=== PATIENT | female | born 1975 | race Caucasian/White ===

== ENCOUNTER → 2020-05-26 09:49 | Outpatient (CLI) | payer OTHER, SELFPAY ==
--- NOTE | 2020-05-26 09:54 | MM_ITS ---
PROCEDURE: MM DIG SCREENING MAMM BI W/CAD Digital Breast Tomosynthesis Included CLINICAL INDICATION: SCREENING There is a history of breast cancer patient's maternal great grandmother. COMPARISON: This is a baseline exam, patient without complaints TECHNIQUE: Standard CC and MLO images and 3D Tomosynthesis was obtained. R2 CAD reviewed. FINDINGS: Fibroglandular densities are seen throughout both breast primarily upper outer quadrants. There is a benign-appearing nodular density upper-outer quadrant right breast and a similar benign-appearing nodular density upper-outer quadrant left breast. These are likely cyst or possibly a low-lying nodes however since this is a baseline study recommend the patient return for targeted ultrasound of each breast for better evaluation. There are no suspicious microcalcifications in either breast. IMPRESSION: Fibrofatty parenchyma with asymmetric densities in each breast BI-RAD Category: 0 Need Additional Imaging Evaluation FOLLOW-UP: IMM Immediate Follow-up Recommended (A letter has been sent to the patient regarding results of the study.) Dictated by: Dr. Marco Antonio Valenzuela MD 06/01/2020 17:59 Dr. Marco Antonio Valenzuela MD in [place] 06/01/2020 17:59
== END ==
PROVIDERS: PCP Nurse Practitioner; Visit Provider Nurse Practitioner
DX: Z12.31 Encounter for screening mammogram for malignant neoplasm of breast (principal)
CPT/HCPCS: 77063; 77067

== ENCOUNTER → 2020-06-08 14:02 | Outpatient (CLI) | payer OTHER, SELFPAY ==
--- NOTE | 2020-06-08 14:26 | US_ITS ---
PROCEDURE: US BREAST LT COMPLETE CLINICAL INDICATION: DISORDERS OF BREAST COMPARISON: MG MM DIG SCREENING MAMM BI W/CAD from 05/26/2020 US US BREAST RT COMPLETE from 06/08/2020 FINDINGS: Left breast: No cystic or solid nodules identified. Right breast: The 10 o'clock region of the right breast there is a 1 x 0.4 cm isoechoic nodule with central focus of increased echogenicity and may be due to a lymph node and may correspond to the mammographic abnormality.. This may also be due to an island of fibroglandular tissue. In review of the mammogram. The nodular densities in the upper outer aspect of both breasts are probably related to lymph nodes. IMPRESSION: No suspicious sonographic abnormality. Mammographic abnormalities probably related to a benign appearing lymph nodes. Suggest 6 month mammographic follow-up. BI-RADS category 3, probably benign. Recommend six-month mammographic follow-up Dictated by: Husam Neal MD 06/12/2020 10:25 Husam Neal MD in [place] 06/12/2020 10:25
== END ==
PROVIDERS: PCP Nurse Practitioner; Visit Provider Nurse Practitioner
DX: N64.4 Mastodynia (principal); R92.8 Other abnormal and inconclusive findings on diagnostic imaging of breast; Z80.3 Family history of malignant neoplasm of breast
CPT/HCPCS: 76641

== ENCOUNTER 2020-09-17 16:11 | Emergency (ER) | payer BC, SELFPAY ==
[2020-09-17 16:27] VITALS: BP 147/82; PULSE 101; RESP 20; TEMP 37.7; O2SAT 95; BMI 37.5
[2020-09-17 16:56] VITALS: BP 147/82; PULSE 108; RESP 20; TEMP 37.7; O2SAT 96; BMI 37.7
--- NOTE | 2020-09-17 17:07 | HMH.EDUTC ---
[facility] Disposition Condition on Discharge: Good <Joselo Hinson - Last Filed: 09/17/20 19:39> Condition on Discharge: Good <Gerry Montero - Last Filed: 09/17/20 22:36> Clinical Impression: Atypical pneumonia, Pneumonia due to COVID-19 virus Disposition: Home, Self-Care Instructions: DI for COVID-19 (Suspected or Confirmed ) Prescriptions: Doxycycline Hyclate [Doxycycline 100mg Capsule] 100 mg PO BID #20 cap Transmission Status: Received by [id number] Referrals: Cely Cancino APRN [Primary Care Provider] - Medical Decision Making - Medical Records Medical records reviewed: Yes: I reviewed the patient's medical records. - Gabriele Inquiry Pt receiving controlled substance: No - Lab Data Result diagrams: 09/17/20 18:18 09/17/20 18:18 - Radiology Data #1 Image(s): Chest Image Reviewed: Yes I reviewed the patient's radiology results, Yes I reviewed the patient's radiology image, Yes I have reviewed radiologist's interpretation - Reevaluation(s) Time: 19:41 <Joselo Hinson - Last Filed: 09/17/20 19:39> - Medical Records Medical records reviewed: No: I reviewed the patient's medical records. - Gabriele Inquiry Pt receiving controlled substance: No - Lab Data Result diagrams: 09/17/20 18:18 09/17/20 18:18 <Gerry Montero - Last Filed: 09/17/20 22:36> Vital Signs: 09/17/20 16:27 09/17/20 16:56 09/17/20 18:44 Temperature 99.8 F H 99.8 F H 99.4 F Temperature Source Oral Oral Oral Pulse Rate Pulse Rate [Right Radial] 101 H 108 H 74 Respiratory Rate 20 20 18 Blood Pressure Blood Pressure [Right Arm] 147/82 H 147/82 H 124/89 Blood Pressure Mean [Right Arm] 103 103 100 Blood Pressure Source [Right Arm] Automatic Cuff Blood Pressure Position [Right Arm] Sitting 02 Sat by Pulse Oximetry 95 96 95 Oxygen Delivery Method Room Air 09/17/20 20:01 Temperature 98.7 F Temperature Source Oral Pulse Rate 83 Pulse Rate [Right Radial] Respiratory Rate 18 Blood Pressure 130/72 Blood Pressure [Right Arm] Blood Pressure Mean [Right Arm] Blood Pressure Source [Right Arm] Blood Pressure Position [Right Arm] 02 Sat by Pulse Oximetry Oxygen Delivery Method - Lab Data Lab Results 09/17/20 18:18: WBC 2.9 L, RBC 4.92, Hgb 14.0, Hct 39.8, MCV 80.9 L, MCH 28.4, MCHC 35.1, RDW 13.8, Plt Count 192, MPV 8.5, Neut % (Auto) 63.6, Lymph % (Auto) 29.1, [place] % (Auto) 6.1, Eos % (Auto) 0.2, Baso % (Auto) 1.0, Neut # (Auto) 1.9, Lymph # (Auto) 0.9, [place] # (Auto) 0.2, Eos # (Auto) 0.0, Baso # (Auto) 0.0 09/17/20 18:18: Sodium 137, Potassium 3.9, Chloride 100, Carbon Dioxide 22, Anion Gap 18.9 H, BUN 17, Creatinine 0.90, Estimated Creat Clear 115, Estimated GFR 67, Est GFR ( Amer) 82, Glucose 101 H, Calcium 8.7 Orders (Tests/Meds): ED MEDICATIONS Discontinued Medications Generic Name Dose Route Start Last Admin Trade Name Freq PRN Reason Stop Dose Admin Dexamethasone Sodium Phosphate 10 mg 09/17/20 19:42 09/17/20 19:55 Dexamethasone 4mg/Ml 5ml Mdv IV 09/17/20 19:43 10 mg ONCE ONE Administration Sodium Chloride 1,000 mls @ 999 mls/hr 09/17/20 18:00 09/17/20 18:36 Sod Chlor 0.9% 1000ml Bag IV 09/17/20 19:00 999 mls/hr .Q1H1M TAMELA Administration Doxycycline Hyclate 100 mg/ 250 mls @ 166.667 mls/hr 09/17/20 19:05 09/17/20 19:19 Sodium Chloride IV 09/17/20 19:06 166.667 mls/hr ONCE ONE Administration Protocol Ondansetron HCl 4 mg 09/17/20 18:10 09/17/20 18:36 Ondansetron 4mg/2ml Vial IV 09/17/20 18:11 4 mg ONCE ONE Administration - Radiology Data #1 IMPRESSION: Patchy bilateral pulmonary nodular infiltrates. (Joselo Hinson) - Reevaluation(s) Reevaluation #1: On reevaluation, the patient is feeling better. There is no evidence of hypoxia or respiratory distress. We did ambulate the patient without any desaturations. Patient be discharged with short course antibiotics. She is coronavirus positive.
--- NOTE | 2020-09-17 17:11 | XR_ITS ---
PROCEDURE INFORMATION: Exam: XR Chest Exam date and time: 09/17/20 05:11 PM Age: 44 years old Clinical indication: Cough; Additional info: Cough, short of breath TECHNIQUE: Imaging protocol: XR of the chest. Views: 2 views. COMPARISON: No relevant prior studies available. FINDINGS: Lungs: Patchy bilateral pulmonary nodular infiltrates. Pleural spaces: Unremarkable. No pleural effusion. No pneumothorax. Heart/Mediastinum: Unremarkable. No cardiomegaly. Bones/joints: Unremarkable. IMPRESSION: Patchy bilateral pulmonary nodular infiltrates.
[2020-09-17 18:44] VITALS: BP 124/89; PULSE 74; RESP 18; TEMP 37.4; O2SAT 95; BMI 37.7
[2020-09-17 19:01] LABS: Chloride 100 mmol/L (98-107)
[2020-09-17 19:02] LABS: Eosinophils % 0.2 % (0.1-12.0); Hematocrit 39.8 % (37.0-47.0); Lymphocytes # 0.9 K/mm3 (0.7-4.5); Lymphocytes % 29.1 % (10-50); Mean Corpuscular HGB Conc 35.1 g/dL (31.8-35.4); Mean Corpuscular Hemoglobin 28.4 pg (27.0-31.2); Mean Corpuscular Volume 80.9 fl (81-99); Mean Platelet Volume 8.5 fl (7.4-10.4); Monocytes # 0.2 K/mm3 (0.1-1.0); Monocytes % 6.1 % (1.7-9.3); Neutrophils # 1.9 K/mm3 (1.8-7.8); Neutrophils % 63.6 % (37.0-80.0); Platelet Count 192 K/mm3 (142-424); Potassium 3.9 mmoL/L (3.5-5.1); Red Blood Count 4.92 M/mm3 (4.20-5.40); Red Cell Distribution Width 13.8 % (11.5-17.5); Sodium 137 mmol/L (136-145); White Blood Count 2.9 K/mm3 (4.8-10.8)
[2020-09-17 19:05] LABS: Anion Gap 18.9 mEq/L (5-15); Blood Urea Nitrogen 17 mg/dl (7-17); Calcium 8.7 mg/dl (8.4-10.2); Carbon Dioxide 22 mmol/L (22.0-30.0); Creatinine Clearance Estimated 115 mL/min (50-200); Estimated Glomerular Filt Rate 67 ml/min (>60); GFR (African American) 82 ML/MIN (>60); Glucose 101 mg/dl (74-100)
[2020-09-17 20:01] VITALS: BP 130/72; PULSE 83; RESP 18; TEMP 37.1; O2SAT 99
== END 2020-09-17 20:11 | disposition home or self-care (01) ==
LOC: UTC 16:42 → ER 18:38
PROVIDERS: Nurse Practitioner Family; Emergency Provider Emergency Medicine; PCP Nurse Practitioner
DX: J12.82 Pneumonia due to coronavirus disease 2019 (principal)
CPT/HCPCS: 71046; 80048; 85025; 96365; 96366; 96375; 99283; J2405; U0003

== ENCOUNTER 2020-09-21 18:16 | Emergency (ER) | payer BC, SELFPAY ==
[2020-09-21 18:18] VITALS: BP 142/91; PULSE 101; RESP 18; TEMP 36.9; O2SAT 97; BMI 34.9
[2020-09-21 18:27] VITALS: BP 133/91; PULSE 111; O2SAT 95
[2020-09-21 18:33] VITALS: BP 142/91; PULSE 112; O2SAT 96
--- NOTE | 2020-09-21 18:48 | XR_ITS ---
PROCEDURE INFORMATION: Exam: XR Chest Exam date and time: 09/21/2020 6:48 PM Age: 44 years old Clinical indication: Patient HX: Cough, patient is covid positive. TECHNIQUE: Imaging protocol: XR of the chest. Views: 1 view. COMPARISON: CR XR CHEST 2V 09/17/2020 5:24 PM FINDINGS: Lungs: Subtle patchy opacity over the right base. Probable calcified nodule again seen on the left. Pleural spaces: Unremarkable. No pleural effusion. No pneumothorax. Heart/Mediastinum: Unremarkable. No cardiomegaly. Bones/joints: Unremarkable. IMPRESSION: Subtle patchy opacity over the right base is worrisome for infection.
[2020-09-21 19:00] VITALS: BP 144/93; PULSE 106; O2SAT 95
--- NOTE | 2020-09-21 19:04 | HMH.EDGENADL ---
ED Disposition Clinical Impression: Pneumonia due to COVID-19 virus, Gastroenteritis Disposition: Home, Self-Care Condition on Discharge: Good Instructions: DI for COVID-19 (Suspected or Confirmed ) Prescriptions: Dicyclomine HCl [Bentyl 10mg capsule] 10 mg PO TID #21 cap Transmission Status: Pending to [id number] Referrals: Cely Cancino APRN [Primary Care Provider] - - Critical Care Critical Care Time: No Attestation: On 09/21/20, the high probability of a clinically significant, sudden or life threatening deterioration of the following system(s) required my full and direct attention, intervention and personal management. The time I documented below is in addition to time spent performing reported procedures but includes the following listed in this critical care notation. Medical Decision Making - Medical Records Medical records reviewed: Yes: I reviewed the patient's medical records. - Gabriele Inquiry Pt receiving controlled substance: No Vital Signs: 09/21/20 18:18 09/21/20 18:27 09/21/20 18:33 Temperature 98.4 F Temperature Source Oral Pulse Rate 111 H 112 H Pulse Rate [Right] 101 H Respiratory Rate 18 Blood Pressure 133/91 H 142/91 H Blood Pressure [Right Arm] 142/91 H Blood Pressure Mean 107 101 Blood Pressure Mean [Right Arm] 108 02 Sat by Pulse Oximetry 97 95 96 Oxygen Delivery Method Room Air 09/21/20 19:00 Temperature Temperature Source Pulse Rate 106 H Pulse Rate [Right] Respiratory Rate Blood Pressure 144/93 H Blood Pressure [Right Arm] Blood Pressure Mean 103 Blood Pressure Mean [Right Arm] 02 Sat by Pulse Oximetry 95 Oxygen Delivery Method - Lab Data Lab Results 09/21/20 18:35: WBC 4.6 L, RBC 4.90, Hgb 13.2, Hct 39.9, MCV 81.4, MCH 26.9 L, MCHC 33.1, RDW 12.9, Plt Count 358, MPV 7.9, Neut % (Auto) 65.9, Lymph % (Auto) 23.7, [place] % (Auto) 7.9, Eos % (Auto) 2.1, Baso % (Auto) 0.4, Neut # (Auto) 3.0, Lymph # (Auto) 1.1, [place] # (Auto) 0.4, Eos # (Auto) 0.1, Baso # (Auto) 0.0 09/21/20 18:35: Sodium 140, Potassium 3.5, Chloride 104, Carbon Dioxide 23, Anion Gap 16.5 H, BUN 16, Creatinine 0.80, Estimated Creat Clear 120, Estimated GFR 77, Est GFR ( Amer) 93, Glucose 98, Calcium 9.0, Total Bilirubin 1.0, AST 69 H, ALT 96 H, Alkaline Phosphatase 96, Total Protein 8.0, Albumin 4.4, Globulin 3.6 H, Albumin/Globulin Ratio 1.2 Result diagrams: 09/21/20 18:35 09/21/20 18:35 Orders (Tests/Meds): ED MEDICATIONS Generic Name Dose Route Start Last Admin Trade Name Freq PRN Reason Stop Dose Admin Sodium Chloride 1,000 mls @ 999 mls/hr 09/21/20 19:00 09/21/20 18:56 Sod Chlor 0.9% 1000ml Bag IV 09/21/20 20:00 999 mls/hr .Q1H1M TAMELA Administration Discontinued Medications Generic Name Dose Route Start Last Admin Trade Name Freq PRN Reason Stop Dose Admin Ketorolac Tromethamine 30 mg 09/21/20 18:48 09/21/20 19:02 Ketorolac 30mg/Ml Vial IM 09/21/20 18:49 Not Given ONCE ONE Ketorolac Tromethamine 30 mg 09/21/20 18:58 09/21/20 19:01 Ketorolac 30mg/Ml Vial IV 09/21/20 18:59 30 mg ONCE ONE Administration Ondansetron HCl 4 mg 09/21/20 18:48 09/21/20 18:56 Ondansetron 4mg/2ml Vial IV 09/21/20 18:49 4 mg ONCE ONE Administration - Radiology Data #1 Image(s): Chest Image Reviewed: Yes I reviewed the patient's radiology results, Yes I have reviewed radiologist's interpretation IMPRESSION: Subtle patchy opacity over the right base is worrisome for infection. - Reevaluation(s) Time: 19:51 Reevaluation #1: On reevaluation, the patient is feeling better. Again there is no hypoxia or respiratory distress. Patient appears hemodynamically stable. Abdomen is nonacute. Nontoxic-appearing. We will try some antidiarrheal medications to help with the patient's symptoms. She will continue her outpatient prescribed antibiotics. Patient does need repeat examination. Patient was given
[2020-09-21 19:05] LABS: Chloride 104 mmol/L (98-107); Potassium 3.5 mmoL/L (3.5-5.1); Sodium 140 mmol/L (136-145)
[2020-09-21 19:07] LABS: Alanine Aminotransferase 96 U/L (12-78); Aspartate Amino Transferase 69 U/L (14-36); Blood Urea Nitrogen 16 mg/dl (7-17); Creatinine Clearance Estimated 120 mL/min (50-200); Estimated Glomerular Filt Rate 77 ml/min (>60); GFR (African American) 93 ML/MIN (>60)
[2020-09-21 19:08] LABS: Albumin Level 4.4 g/dl (3.5-5.0); Albumin/Globulin Ratio 1.2 (1.1-1.8); Alkaline Phosphatase 96 U/L (38-126); Anion Gap 16.5 mEq/L (5-15); Carbon Dioxide 23 mmol/L (22.0-30.0); Globulin 3.6 g/dL (1.3-3.2); Glucose 98 mg/dl (74-100)
[2020-09-21 19:20] LABS: Basophils % 0.4 % (0.1-2.0); Eosinophils # 0.1 K/mm3 (0.0-0.4); Eosinophils % 2.1 % (0.1-12.0); Hematocrit 39.9 % (37.0-47.0); Hemoglobin 13.2 g/dL (12.2-16.2); Lymphocytes # 1.1 K/mm3 (0.7-4.5); Lymphocytes % 23.7 % (10-50); Mean Corpuscular HGB Conc 33.1 g/dL (31.8-35.4); Mean Corpuscular Hemoglobin 26.9 pg (27.0-31.2); Mean Corpuscular Volume 81.4 fl (81-99); Mean Platelet Volume 7.9 fl (7.4-10.4); Monocytes # 0.4 K/mm3 (0.1-1.0); Monocytes % 7.9 % (1.7-9.3); Neutrophils % 65.9 % (37.0-80.0); Platelet Count 358 K/mm3 (142-424); Red Cell Distribution Width 12.9 % (11.5-17.5); White Blood Count 4.6 K/mm3 (4.8-10.8)
[2020-09-21 20:37] VITALS: BP 153/80; PULSE 90; RESP 18; TEMP 36.9; O2SAT 95
== END 2020-09-21 20:41 | disposition home or self-care (01) ==
PROVIDERS: Emergency Provider Emergency Medicine; PCP Nurse Practitioner
DX: J12.82 Pneumonia due to coronavirus disease 2019 (principal); K52.9 Noninfective gastroenteritis and colitis, unspecified
CPT/HCPCS: 71045; 80053; 85025; 96365; 96375; 99282; J2405

== ENCOUNTER → 2021-01-11 13:32 | Outpatient (CLI) | payer BC, SELFPAY ==
--- NOTE | 2021-01-11 13:37 | MM_ITS ---
PROCEDURE INFORMATION: Exam: MG Bilateral Diagnostic Breast Tomosynthesis Exam date and time: 01/11/2021 1:37 PM Age: 45 years old Clinical indication: Short-term radiographic follow-up for bilateral upper outer quadrant masses seen on mammogram dated 05/26/2020. TECHNIQUE: Imaging protocol: Bilateral Diagnostic tomosynthesis and 2D mammography including computer-aided detection (CAD) when performed. Unilateral or bilateral exam. COMPARISON: 1. MG MM DIG SCREENING MAMM BI W/CAD 05/26/2020 9:56 AM 2. US BREAST LT COMPLETE 06/08/2020 2:43 PM FINDINGS: MAMMOGRAPHY: The breast tissue is heterogeneously dense, which may obscure small masses. There is no stellate mass, architectural distortion or suspicious microcalcifications in either breast to suggest malignancy. Bilateral fat containing subcentimeter upper outer quadrant intramammary lymph nodes are present and correspond to the previously noted masses seen on mammogram dated 05/26/2020. No skin thickening or axillary adenopathy. IMPRESSION: No mammographic evidence of malignancy. Bilateral benign intramammary lymph nodes.Annual bilateral mammographic screening is recommended unless otherwise clinically indicated. ASSESSMENT: BI-RADS Category 1: Negative
== END ==
PROVIDERS: PCP Nurse Practitioner; Visit Provider Nurse Practitioner
DX: R92.8 Other abnormal and inconclusive findings on diagnostic imaging of breast (principal)
CPT/HCPCS: 77062; 77066; G0279

== ENCOUNTER 2022-12-24 23:38 | Emergency (ER) | payer BC, SELFPAY ==
[2022-12-24 23:39] VITALS: BP 168/98; PULSE 108; RESP 16; TEMP 37; O2SAT 97; BMI 37.5
--- NOTE | 2022-12-24 23:45 | HMH.EDGENADL ---
Discharge Plan Disposition Patient Disposition: Home, Self-Care Prescriptions Prescriptions: New nitrofurantoin macrocrystal 100 mg capsule 100 mg PO BID 5 Days Qty: 10 0RF Rx Instructions: must administer with a meal/food phenazopyridine [Pyridium] 200 mg tablet 200 mg PO Q8H PRN (Reason: pain) Qty: 20 0RF No Action dicyclomine 10 MG capsule 10 mg PO TID Qty: 21 0RF doxycycline hyclate 100 MG capsule 100 mg PO BID Qty: 20 0RF Referrals Follow up/Referrals: Cely Cancino APRN [Primary Care Provider] - See instructions Activity Restrictions/Add. Instructions Additional Instructions/Restrictions: Please follow-up with your primary care provider. Please return to the emergency department if you develop any new or worsening symptoms or become concerned for your health. Please take antibiotics as prescribed. Clinical Impressions Clinical Impression: UTI (urinary tract infection) Qualifiers: Urinary tract infection type: acute cystitis Hematuria presence: with hematuria Qualified Code(s): N30.01 - Acute cystitis with hematuria Instructions Patient Instructions: DI for Urinary Tract Infection (UTI), DI for Urinary Tract Infection in Children Discharge ED Provider: Catalino Oswald General Adult HPI General Chief complaint: Urogenital-Female Stated complaint: blood in urine Time Seen by Provider: 12/24/22 23:43 History of Present Illness HPI narrative: 47-year-old female presents with hematuria, burning with urination, suprapubic pain. She denies any flank pain. She reports that when she was growing up she had frequent UTIs, but has not had one for a long time. She reports that she developed gross hematuria this evening, and has been worsening. She denies any recent fever or illness. Reports no history of kidney stones. Reports that her UTIs as a child presented with hematuria and pain. She reports no other concerning signs of bleeding. Specifically denies any menstrual bleeding, vaginal trauma, rectal bleeding. No history of coagulopathy. Related Data Previous Rx's Medication Instructions Recorded doxycycline hyclate 100 mg capsule 100 mg PO BID #20 caps 09/17/20 dicyclomine 10 mg capsule 10 mg PO TID #21 caps 09/21/20 nitrofurantoin macrocrystal 100 mg 100 mg PO BID 5 days #10 caps 12/25/22 capsule phenazopyridine 200 mg tablet 200 mg PO Q8H PRN pain 6 doses #20 12/25/22 (Pyridium) tabs Allergies Allergy/AdvReac Type Severity Reaction Status Date / Time cephalexin Allergy Verified 09/17/20 17:02 sulfamethoxazole Allergy Verified 09/17/20 17:02 [From Bactrim] trimethoprim [From Bactrim] Allergy Verified 09/17/20 17:02 [facility] Disclaimer: The information contained in this section may have been updated after the patient was seen, as this information can be updated by other users. Social History Smoking Status: Never smoker alcohol intake: never current occupational status: other Travel in the last 8 weeks: None ROS Obtained: Yes All systems reviewed & no additional complaints except as documented Physical Exam General General appearance: alert and in no apparent distress Head Head exam: atraumatic and normocephalic Eye Eye exam: Present normal appearance, PERRL and EOMI ENT ENT exam: Present normal oropharynx and normal external ear exam Neck Neck exam: Present normal inspection and full ROM Chest Chest inspection: Present normal inspection and symmetric chest wall rise; Absent tenderness Respiratory Respiratory exam: Present normal lung sounds bilaterally; Absent respiratory distress Cardiovascular Cardiovascular exam: Present regular rate and normal rhythm Abdominal Exam Abdominal exam: Present soft; Absent distention, tenderness or guarding Extremities Exam Extremities exam: Present normal inspection; Absent edema or joint swelling Back Exam Back exam: Present normal inspection; Absent tenderness Neurological Exam Neurologic
--- NOTE | 2022-12-24 23:49 | PC.NURSE ---
in room talking with patient at this time.
[2022-12-25 00:01] LABS: Microscopic, Urine URINE MICROSCOPIC (MICROSCOPIC)
[2022-12-25 00:07] LABS: Appearance,Urine CLEAR (Clear); Blood, Urine 3+ (Negative); Color,Urine YELLOW (Yellow); Glucose,Urine (UA) Negative (Negative); Ketones,Urine Negative (Negative); Leukocyte Esterase,Urine 1+ (Negative); Nitrate,Urine POSITIVE (Negative); Protein,Urine 3+ (Negative); Specific Gravity, Urine >= 1.030 (1.005-1.030)
[2022-12-25 00:12] LABS: Bilirubin,Urine 1+ (Negative)
[2022-12-25 00:17] LABS: Bacteria,Urine Trace /lpf; RBC,Urine TNTC #/hpf (0-3); Squamous Epithelial Cell,Urine Occasional #/hpf (0-5)
--- NOTE | 2022-12-25 00:24 | PC.NURSE ---
in room talking with patiet at this time.
[2022-12-25 00:38] VITALS: BP 145/76; PULSE 76; RESP 20; TEMP 36.9
== END 2022-12-25 00:40 | disposition home or self-care (01) ==
PROVIDERS: Emergency Provider Emergency Medicine; PCP Nurse Practitioner
DX: N30.01 Acute cystitis with hematuria (principal); R10.30 Lower abdominal pain, unspecified
CPT/HCPCS: 81001; 87086; 96372; 99283

== ENCOUNTER 2023-12-18 09:00 | Outpatient (RCR) | payer BC, SELFPAY | END 2024-01-16 13:49 | disposition home or self-care (01) | LOC: PT 09:00 | PROVIDERS: Visit Provider Nurse Practitioner | DX: M25.561 Pain in right knee (principal) | CPT/HCPCS: 97014; 97035; 97110; 97163; G0283 ==

== ENCOUNTER 2024-02-08 08:38 | Outpatient (CLI) | payer BC, SELFPAY ==
--- NOTE | 2024-02-08 08:46 | MR_ITS ---
FINAL REPORT CLINICAL HISTORY: PAIN RT KNEE. POPPING IN KNEE. PAIN ABOVE PATELLA. KNEE INSTABILITY FINDINGS: Multiplanar MR imaging of the right knee was performed without contrast. The medial and lateral menisci are intact without evidence of meniscal tear. The anterior and posterior cruciate ligaments are intact. The medial collateral ligament and lateral ligamentous complex are intact. The patellar and quadriceps tendons are intact. There is no evidence of fracture. There is mild lateral patellar subluxation. No focal abnormality is identified of the articular cartilage. A small joint effusion is seen. The musculature is intact. There is a 24 mm lobular cystic mass at the posterior knee consistent with ganglion cyst. IMPRESSION: Mild lateral patellar subluxation. 24 mm ganglion cyst at the posterior knee. Reviewed, Interpreted and Dictated by Nader Aguilar III, MD Transcribed by Lore Conroy Authenticated and [facility]
== END 2024-02-08 23:59 | disposition home or self-care (01) ==
LOC: RAD 08:40
PROVIDERS: PCP Nurse Practitioner; Visit Provider Nurse Practitioner
DX: M25.561 Pain in right knee (principal)
CPT/HCPCS: 73721